=== PATIENT | male | born 1990 | race Caucasian/White ===

== ENCOUNTER 2023-08-27 07:52 | Outpatient (CLI) | payer MEDICARE, MEDICAID, SELFPAY | END 2023-08-27 07:53 | disposition home or self-care (01) | LOC: WOUND 07:55 | PROVIDERS: Visit Provider Nurse Practitioner Family | DX: L89.153 Pressure ulcer of sacral region, stage 3 (principal); G80.0 Spastic quadriplegic cerebral palsy; Z99.3 Dependence on wheelchair | CPT/HCPCS: 97597; 99203 ==

== ENCOUNTER 2023-09-04 09:30 | Outpatient (CLI) | payer MEDICARE, MEDICAID, SELFPAY | END 2023-09-04 09:31 | disposition home or self-care (01) | PROVIDERS: Visit Provider Nurse Practitioner Family | DX: L89.153 Pressure ulcer of sacral region, stage 3 (principal); G80.8 Other cerebral palsy; Z99.3 Dependence on wheelchair | CPT/HCPCS: 11042 ==

== ENCOUNTER 2023-09-18 10:40 | Outpatient (CLI) | payer MEDICARE, MEDICAID, SELFPAY | END 2023-09-18 10:41 | disposition home or self-care (01) | LOC: WOUND 10:42 | PROVIDERS: Visit Provider Family Medicine | DX: L89.153 Pressure ulcer of sacral region, stage 3 (principal); G82.50 Quadriplegia, unspecified; Z99.3 Dependence on wheelchair | CPT/HCPCS: 11042 ==

== ENCOUNTER 2023-10-02 10:45 | Outpatient (CLI) | payer MEDICARE, MEDICAID, SELFPAY ==
[2023-10-02 12:57] LABS: Basophils Absolute Auto 0.02 K/uL (0.00-0.30); Basophils Percent Auto 0.2 % (0.0-3.0); Eosinophils Absolute Auto 0.03 K/uL (0.00-0.50); Eosinophils Percent Auto 0.3 % (0.0-7.0); Hematocrit 43.7 % (37.0-53.0); Hemoglobin* 14.2 gm/dL (13.5-17.5); Immature Granulocytes Abs Auto 0.02 K/uL (0.00-0.30); Immature Granulocytes Pct Auto 0.2 %; Lymphocytes Percent Auto 12.7 % (20-44); Mean Corpuscular HGB Conc 33 gm/dL (32-36); Mean Corpuscular Hemoglobin 28 pg (26-34); Mean Corpuscular Volume 85 fL (80-100); Monocytes Percent Auto 10.6 % (0.0-11.0); Platelet Count* 259 K/uL (140-440); RDW Coefficient of Variation % 12.8 % (11.5-15.5); Red Blood Count 5.13 m/uL (4.30-5.90); White Blood Count* 10.78 K/uL (4.50-11.00)
[2023-10-02 13:01] LABS: Slide Review Reflex No
[2023-10-02 13:11] LABS: Chloride* 103 mmol/L (96-114)
[2023-10-02 13:12] LABS: Potassium* 4.1 mmol/L (3.6-5.1); Sodium* 140 mmol/L (135-149)
[2023-10-02 13:14] LABS: Creatinine* 0.5 mg/dL (0.5-1.5); Estimated Glomerular Filt Rate 138 ml/min
[2023-10-02 13:15] LABS: Anion Gap 10 mEq/L (7-15); Blood Urea Nitrogen* 16 mg/dL (5-24); Carbon Dioxide* 27 mmol/L (20-32); Glucose* 123 mg/dL (60-115)
[2023-10-02 13:16] LABS: Calcium* 9.2 mg/dL (8.4-10.6)
[2023-10-02 13:37] LABS: C Reactive Protein* 20.3 mg/dL (0.5-1.0)
[2023-10-02 13:44] LABS: Erythrocyte SedimentationRate* 38 mm/hr (2-15)
== END 2023-10-02 10:46 | disposition home or self-care (01) ==
LOC: WOUND 10:45
PROVIDERS: Visit Provider Nurse Practitioner Family
DX: L89.154 Pressure ulcer of sacral region, stage 4 (principal); G80.9 Cerebral palsy, unspecified; Z99.3 Dependence on wheelchair
CPT/HCPCS: 11044; 36415; 80048; 85025; 85651; 86140; 87070; 87186; 88307; 99212

== ENCOUNTER 2023-10-02 12:48 | Outpatient (CLI) | payer MEDICARE, MEDICAID, SELFPAY ==
--- NOTE | 2023-10-02 12:45 | CRLHL7_ITS ---
For Patients: As a result of the Cures Act, medical imaging exams and procedure reports are released immediately into your electronic medical record. You may view this report before your referring provider. If you have questions, please contact your health care provider. Indication: Pressure ulcer of the sacral region. Technique: Sacrum and coccyx lateral 1 views. Comparison: None. Findings/Impression: Hardware fusion of the lumbosacral spine. No hardware complication evident on this single image. No suspicious bone lesion to suggest osteomyelitis. No sign of fracture. No focal abnormality in the visualized soft tissues. Dictated by Jean-Pierre Sauer MD @ 10/03/2023 4:02:18 PM (Electronically Signed)
== END 2023-10-02 12:49 | disposition home or self-care (01) ==
LOC: RAD 12:50
PROVIDERS: Visit Provider Nurse Practitioner Family
DX: L89.159 Pressure ulcer of sacral region, unspecified stage (principal)
CPT/HCPCS: 11044; 36415; 72220; 80048; 85025; 85651; 86140; 87070; 87186; 88307; 99212

== ENCOUNTER 2023-10-16 10:50 | Outpatient (CLI) | payer MEDICARE, MEDICAID, SELFPAY | END 2023-10-16 10:51 | disposition home or self-care (01) | LOC: WOUND 10:50 | PROVIDERS: Visit Provider Nurse Practitioner Family | DX: L89.154 Pressure ulcer of sacral region, stage 4 (principal); G82.50 Quadriplegia, unspecified; Z99.3 Dependence on wheelchair | CPT/HCPCS: 11044; 88304; 88311; 99212 ==

== ENCOUNTER 2023-10-17 11:02 | Outpatient (CLI) | payer MEDICARE, MEDICAID, SELFPAY ==
--- NOTE | 2023-10-17 11:00 | CRLHL7_ITS ---
For Patients: As a result of the Century Cures Act, medical imaging exams and procedure reports are released immediately into your electronic medical record. You may view this report before your referring provider. If you have questions, please contact your health care provider. Indication: SCARL PRESSURE ,ULCER WORSENING,TAIL BONE EXPOSES Technique: PELVIS WITH ISOVUE 370 55CC CONTRAST USED Please note that all CT scans at this facility use dose modulation, iterative reconstruction, and/or weight-based dosing when appropriate to reduce radiation dose to as low as reasonably achievable. Comparison: X-rays 10/02/2023 Findings: Pressure ulcers presents within the posterior lower pelvic soft tissues of the midline adjacent to the sacrum with soft tissue swelling and subcutaneous gas corresponding to the clinical findings. The sacral bony structures appear intact without acute cortical destruction or periostitis. No acute fracture. Dysplasia of the right hip joint. Postop changes lumbar spine extending to the iliac bones. Scoliosis. Kramer catheter in the bladder. Constipation. No drainable abscess. No adenopathy. Impression: Pressure ulcer with subcutaneous edema and soft tissue gas without evidence of osteomyelitis involving the adjacent sacrum. Please note that all CT scans at this facility use dose modulation, iterative reconstruction, and/or weight-based dosing when appropriate to reduce radiation dose to as low as reasonably achievable. Dictated by Joseluis Bolton MD @ 10/17/2023 1:15:17 PM (Electronically Signed)
== END 2023-10-17 11:03 | disposition home or self-care (01) ==
PROVIDERS: Visit Provider Nurse Practitioner Family
DX: L89.159 Pressure ulcer of sacral region, unspecified stage (principal)
CPT/HCPCS: 72193; Q9967

== ENCOUNTER 2023-11-06 11:01 | Outpatient (CLI) | payer MEDICARE, MEDICAID, SELFPAY | END 2023-11-06 11:02 | disposition home or self-care (01) | LOC: WOUND 11:02 | PROVIDERS: Visit Provider Physician Assistant | DX: L89.154 Pressure ulcer of sacral region, stage 4 (principal); G82.50 Quadriplegia, unspecified; Z99.3 Dependence on wheelchair | CPT/HCPCS: 97597 ==

== ENCOUNTER 2023-11-20 10:24 | Outpatient (CLI) | payer MEDICARE, MEDICAID, SELFPAY | END 2023-11-20 10:25 | disposition home or self-care (01) | LOC: WOUND 10:24 | PROVIDERS: Visit Provider Nurse Practitioner Family | DX: L89.154 Pressure ulcer of sacral region, stage 4 (principal); G80.9 Cerebral palsy, unspecified; Z99.3 Dependence on wheelchair | CPT/HCPCS: 11042 ==

== ENCOUNTER 2023-12-04 10:58 | Outpatient (CLI) | payer MEDICARE, MEDICAID, SELFPAY | END 2023-12-04 10:59 | disposition home or self-care (01) | LOC: WOUND 10:58 | PROVIDERS: Visit Provider Physician Assistant | DX: L89.154 Pressure ulcer of sacral region, stage 4 (principal); G82.50 Quadriplegia, unspecified; Z99.3 Dependence on wheelchair | CPT/HCPCS: 97597; G0463 ==

== ENCOUNTER 2023-12-12 10:46 | Outpatient (CLI) | payer MEDICARE, MEDICAID, SELFPAY ==
--- NOTE | 2023-12-12 11:00 | CRLHL7_ITS ---
For Patients: As a result of the Century Cures Act, medical imaging exams and procedure reports are released immediately into your electronic medical record. You may view this report before your referring provider. If you have questions, please contact your health care provider. HISTORY: Nonhealing wound. TECHNIQUE: Intravenous contrast enhanced CT of the pelvis. 55 mL of Isovue-370 intravenous contrast was administered. COMPARISON: 10/17/2023. FINDINGS: There is a sacral decubitus ulcer with infiltration of the posterior soft tissues compatible with cellulitis. This is present adjacent to the lower sacrum. To the left of the midline in the left inferior gluteal region, there is an approximately 1.8 x 1.3 x 2.2 cm suspected subcutaneous fluid collection suspicious for abscess. This is noted on axial image 72 of series 2. Its deep aspect abuts the inferomedial left gluteus tanisha muscle. On the sagittal images, note is made of some attenuation of the inferior sacrum at the S5 level and 1st coccygeal segment. This is noted on sagittal #42 of series 4 for example and likely reflects sequelae of osteomyelitis. On the prior CT, there was corresponding bony attenuation and likely a fracture of the sacrococcygeal junction. That finding has undergone interval healing. No definite new bone destruction. Mid to upper aspect the sacrum is intact. Patient has undergone prior extensive spinal instrumentation. Suprapubic urinary bladder catheter. Moderate stool within the colon. IMPRESSION: 1. Sacral region decubitus ulcer with underlying soft tissue infiltration compatible with cellulitis. 2. To the left of the midline in the left inferior gluteal region is a small fluid collection which may reflect a subcutaneous abscess. 3. 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 No progressive bone destruction. Note that MRI is most optimal for evaluation of marrow for osteomyelitis. Dictated by Matias Cam MD @ 12/12/2023 12:00:41 PM Please note that all CT scans at this facility use dose modulation, iterative reconstruction, and/or weight-based dosing when appropriate to reduce radiation dose to as low as reasonably achievable. Dictated by: Matias Cam MD @ 12/12/2023 12:00:46 (Electronically Signed)
== END 2023-12-12 10:47 | disposition home or self-care (01) ==
LOC: CT 10:47
PROVIDERS: Visit Provider Physician Assistant
DX: L89.154 Pressure ulcer of sacral region, stage 4 (principal)
CPT/HCPCS: 72193; Q9967

== ENCOUNTER 2023-12-18 10:53 | Outpatient (CLI) | payer MEDICARE, MEDICAID, SELFPAY | END 2023-12-18 10:54 | disposition home or self-care (01) | LOC: WOUND 10:54 | PROVIDERS: Visit Provider Physician Assistant | DX: L89.154 Pressure ulcer of sacral region, stage 4 (principal); L02.31 Cutaneous abscess of buttock; G82.50 Quadriplegia, unspecified; Z99.3 Dependence on wheelchair | CPT/HCPCS: 10140; 97597 ==

== ENCOUNTER 2023-12-25 12:50 | Outpatient (CLI) | payer MEDICARE, MEDICAID, SELFPAY | END 2023-12-25 12:51 | disposition home or self-care (01) | LOC: WOUND 12:50 | PROVIDERS: Visit Provider Nurse Practitioner Family | DX: L89.154 Pressure ulcer of sacral region, stage 4 (principal); G82.50 Quadriplegia, unspecified; Z99.3 Dependence on wheelchair | CPT/HCPCS: 11043 ==

== ENCOUNTER 2024-01-01 11:01 | Outpatient (CLI) | payer MEDICARE, MEDICAID, SELFPAY | END 2024-01-01 11:02 | disposition home or self-care (01) | PROVIDERS: Visit Provider Physician Assistant | DX: L89.154 Pressure ulcer of sacral region, stage 4 (principal); L08.9 Local infection of the skin and subcutaneous tissue, unspecified; B95.61 Methicillin susceptible Staphylococcus aureus infection as the cause of diseases classified elsewhere; B95.2 Enterococcus as the cause of diseases classified elsewhere; Z99.3 Dependence on wheelchair; G82.50 Quadriplegia, unspecified | CPT/HCPCS: 87070; 87186; 97597; G0463 ==

== ENCOUNTER 2024-01-08 10:56 | Outpatient (CLI) | payer MEDICARE, MEDICAID, SELFPAY | END 2024-01-08 10:57 | disposition home or self-care (01) | LOC: WOUND 10:56 | PROVIDERS: Visit Provider Nurse Practitioner Family | DX: L89.154 Pressure ulcer of sacral region, stage 4 (principal); G82.50 Quadriplegia, unspecified; Z99.3 Dependence on wheelchair | CPT/HCPCS: 11042 ==

== ENCOUNTER 2024-01-15 10:56 | Outpatient (CLI) | payer MEDICARE, MEDICAID, SELFPAY | END 2024-01-15 10:57 | disposition home or self-care (01) | PROVIDERS: Visit Provider Nurse Practitioner Family | DX: L89.154 Pressure ulcer of sacral region, stage 4 (principal); G82.50 Quadriplegia, unspecified; Z99.3 Dependence on wheelchair | CPT/HCPCS: 11042 ==

== ENCOUNTER 2024-01-29 10:57 | Outpatient (CLI) | payer MEDICARE, MEDICAID, SELFPAY | END 2024-01-29 10:58 | disposition home or self-care (01) | LOC: WOUND 10:59 | PROVIDERS: Visit Provider Physician Assistant | DX: L89.154 Pressure ulcer of sacral region, stage 4 (principal); G82.50 Quadriplegia, unspecified; Z99.3 Dependence on wheelchair | CPT/HCPCS: 97597 ==

== ENCOUNTER 2024-02-12 10:54 | Outpatient (CLI) | payer MEDICARE, MEDICAID, SELFPAY | END 2024-02-12 10:55 | disposition home or self-care (01) | LOC: WOUND 10:55 | PROVIDERS: Visit Provider Nurse Practitioner Family | DX: L89.154 Pressure ulcer of sacral region, stage 4 (principal); G82.50 Quadriplegia, unspecified; Z99.3 Dependence on wheelchair | CPT/HCPCS: 11042 ==

== ENCOUNTER 2024-02-26 10:39 | Outpatient (CLI) | payer MEDICARE, MEDICAID, SELFPAY | END 2024-02-26 10:40 | disposition home or self-care (01) | LOC: WOUND 10:39 | PROVIDERS: Visit Provider Nurse Practitioner Family | DX: L89.154 Pressure ulcer of sacral region, stage 4 (principal); G82.50 Quadriplegia, unspecified; Z99.3 Dependence on wheelchair | CPT/HCPCS: 11042 ==

== ENCOUNTER 2024-03-11 10:53 | Outpatient (CLI) | payer MEDICARE, MEDICAID, SELFPAY | END 2024-03-11 10:54 | disposition home or self-care (01) | LOC: WOUND 10:53 | PROVIDERS: Visit Provider Nurse Practitioner Family | DX: L89.154 Pressure ulcer of sacral region, stage 4 (principal); G82.50 Quadriplegia, unspecified; Z99.3 Dependence on wheelchair | CPT/HCPCS: 11044; 87070; 87186; 88307; 88311; G0463 ==

== ENCOUNTER 2024-03-27 12:39 | Outpatient (CLI) | payer MEDICARE, MEDICAID, SELFPAY | END 2024-03-27 12:40 | disposition home or self-care (01) | LOC: WOUND 12:40 | PROVIDERS: Visit Provider Nurse Practitioner Family | DX: L89.154 Pressure ulcer of sacral region, stage 4 (principal); G82.50 Quadriplegia, unspecified; Z99.3 Dependence on wheelchair | CPT/HCPCS: 11042 ==

== ENCOUNTER 2024-04-14 08:40 | Outpatient (CLI) | payer MEDICARE, MEDICAID, SELFPAY | END 2024-04-14 08:41 | disposition home or self-care (01) | LOC: WOUND 08:40 | PROVIDERS: Visit Provider Nurse Practitioner Family | DX: M86.68 Other chronic osteomyelitis, other site (principal); L89.154 Pressure ulcer of sacral region, stage 4; G82.50 Quadriplegia, unspecified; Z99.3 Dependence on wheelchair | CPT/HCPCS: 11042 ==

== ENCOUNTER 2024-04-22 10:53 | Outpatient (CLI) | payer MEDICARE, MEDICAID, SELFPAY | END 2024-04-22 10:54 | disposition home or self-care (01) | LOC: WOUND 10:54 | PROVIDERS: Visit Provider Nurse Practitioner Family | DX: M86.68 Other chronic osteomyelitis, other site (principal); L89.154 Pressure ulcer of sacral region, stage 4; G82.50 Quadriplegia, unspecified; Z99.3 Dependence on wheelchair | CPT/HCPCS: 11042 ==

== ENCOUNTER 2024-05-06 10:53 | Outpatient (CLI) | payer MEDICARE, MEDICAID, SELFPAY | END 2024-05-06 10:54 | disposition home or self-care (01) | LOC: WOUND 10:53 | PROVIDERS: Visit Provider Nurse Practitioner Family | DX: L89.154 Pressure ulcer of sacral region, stage 4 (principal); M86.68 Other chronic osteomyelitis, other site; G82.50 Quadriplegia, unspecified; Z99.3 Dependence on wheelchair | CPT/HCPCS: 11042 ==

== ENCOUNTER 2024-05-20 10:55 | Outpatient (CLI) | payer MEDICARE, MEDICAID, SELFPAY | END 2024-05-20 10:56 | disposition home or self-care (01) | LOC: WOUND 10:56 | PROVIDERS: Visit Provider Nurse Practitioner Family | DX: M86.68 Other chronic osteomyelitis, other site (principal); L89.154 Pressure ulcer of sacral region, stage 4; G82.50 Quadriplegia, unspecified; Z99.3 Dependence on wheelchair | CPT/HCPCS: 97597 ==

== ENCOUNTER 2024-06-03 10:52 | Outpatient (CLI) | payer MEDICARE, MEDICAID, SELFPAY | END 2024-06-03 10:53 | disposition home or self-care (01) | LOC: WOUND 10:52 | PROVIDERS: Visit Provider Nurse Practitioner Family | DX: M86.68 Other chronic osteomyelitis, other site (principal); L89.154 Pressure ulcer of sacral region, stage 4; G82.50 Quadriplegia, unspecified; Z99.3 Dependence on wheelchair | CPT/HCPCS: 11042 ==

== ENCOUNTER 2024-06-17 10:51 | Outpatient (CLI) | payer MEDICARE, MEDICAID, SELFPAY | END 2024-06-17 10:52 | disposition home or self-care (01) | LOC: WOUND 10:51 | PROVIDERS: Visit Provider Physician Assistant Surgical | DX: M86.68 Other chronic osteomyelitis, other site (principal); L89.154 Pressure ulcer of sacral region, stage 4; G82.50 Quadriplegia, unspecified; Z99.3 Dependence on wheelchair | CPT/HCPCS: 11042 ==

== ENCOUNTER 2024-07-01 11:02 | Outpatient (CLI) | payer MEDICARE, MEDICAID, SELFPAY | END 2024-07-01 11:03 | disposition home or self-care (01) | LOC: WOUND 11:03 | PROVIDERS: Visit Provider Nurse Practitioner Family | DX: L89.154 Pressure ulcer of sacral region, stage 4 (principal); M86.68 Other chronic osteomyelitis, other site; G82.50 Quadriplegia, unspecified; Z99.3 Dependence on wheelchair | CPT/HCPCS: 11042 ==

== ENCOUNTER 2024-07-24 09:58 | Outpatient (CLI) | payer MEDICARE, MEDICAID, SELFPAY | END 2024-07-24 09:59 | disposition home or self-care (01) | LOC: WOUND 09:59 | PROVIDERS: Visit Provider Nurse Practitioner Family | DX: M86.68 Other chronic osteomyelitis, other site (principal); L89.154 Pressure ulcer of sacral region, stage 4; T81.41XA Infection following a procedure, superficial incisional surgical site, initial encounter; L76.34 Postprocedural seroma of skin and subcutaneous tissue following other procedure; G82.50 Quadriplegia, unspecified; Z99.3 Dependence on wheelchair | CPT/HCPCS: 10140; 11042; 87070; G0463 ==

== ENCOUNTER 2024-08-12 10:53 | Outpatient (CLI) | payer MEDICARE, MEDICAID, SELFPAY | END 2024-08-12 10:54 | disposition home or self-care (01) | LOC: WOUND 10:54 | PROVIDERS: Visit Provider Nurse Practitioner Family | DX: M86.68 Other chronic osteomyelitis, other site (principal); L89.154 Pressure ulcer of sacral region, stage 4; G82.50 Quadriplegia, unspecified; Z99.3 Dependence on wheelchair | CPT/HCPCS: 11042 ==

== ENCOUNTER 2024-09-09 10:53 | Outpatient (CLI) | payer MEDICARE, MEDICAID, SELFPAY | END 2024-09-09 10:54 | disposition home or self-care (01) | LOC: WOUND 10:53 | PROVIDERS: Visit Provider Nurse Practitioner Family | DX: M86.68 Other chronic osteomyelitis, other site (principal); L89.154 Pressure ulcer of sacral region, stage 4; T81.41XA Infection following a procedure, superficial incisional surgical site, initial encounter; G82.50 Quadriplegia, unspecified; Z99.3 Dependence on wheelchair | CPT/HCPCS: 11042; 96372; J0696 ==

== ENCOUNTER 2024-09-23 10:53 | Outpatient (CLI) | payer MEDICARE, MEDICAID, SELFPAY | END 2024-09-23 10:54 | disposition home or self-care (01) | LOC: WOUND 10:53 | PROVIDERS: Visit Provider Nurse Practitioner Family | DX: M86.68 Other chronic osteomyelitis, other site (principal); L89.154 Pressure ulcer of sacral region, stage 4; G82.50 Quadriplegia, unspecified; Z99.3 Dependence on wheelchair | CPT/HCPCS: 11042 ==

== ENCOUNTER 2024-10-09 10:50 | Outpatient (CLI) | payer MEDICARE, MEDICAID, SELFPAY | END 2024-10-09 10:51 | disposition home or self-care (01) | LOC: WOUND 10:50 | PROVIDERS: Visit Provider Nurse Practitioner Family | DX: L89.154 Pressure ulcer of sacral region, stage 4 (principal); G82.50 Quadriplegia, unspecified; Z99.3 Dependence on wheelchair | CPT/HCPCS: 11042 ==

== ENCOUNTER 2024-10-21 10:44 | Outpatient (CLI) | payer MEDICARE, MEDICAID, SELFPAY | END 2024-10-21 10:45 | disposition home or self-care (01) | LOC: WOUND 10:44 | PROVIDERS: Visit Provider Nurse Practitioner Family | DX: L89.154 Pressure ulcer of sacral region, stage 4 (principal); G82.50 Quadriplegia, unspecified; Z99.3 Dependence on wheelchair | CPT/HCPCS: 11042 ==

== ENCOUNTER 2024-11-18 10:49 | Outpatient (CLI) | payer MEDICARE, MEDICAID, SELFPAY | END 2024-11-18 10:50 | disposition home or self-care (01) | LOC: WOUND 10:50 | PROVIDERS: Visit Provider Nurse Practitioner Family | DX: M86.68 Other chronic osteomyelitis, other site (principal); L89.154 Pressure ulcer of sacral region, stage 4; G82.50 Quadriplegia, unspecified; Z99.3 Dependence on wheelchair | CPT/HCPCS: 97597 ==

== ENCOUNTER 2024-12-02 10:56 | Outpatient (CLI) | payer MEDICARE, MEDICAID, SELFPAY | END 2024-12-02 10:57 | disposition home or self-care (01) | LOC: WOUND 10:56 | PROVIDERS: Visit Provider Nurse Practitioner Family | DX: L89.154 Pressure ulcer of sacral region, stage 4 (principal); G82.50 Quadriplegia, unspecified; Z99.3 Dependence on wheelchair | CPT/HCPCS: 97597 ==

== ENCOUNTER 2024-12-16 10:49 | Outpatient (CLI) | payer MEDICARE, MEDICAID, SELFPAY | END 2024-12-16 10:50 | disposition home or self-care (01) | LOC: WOUND 10:49 | PROVIDERS: Visit Provider Nurse Practitioner Family | DX: L89.154 Pressure ulcer of sacral region, stage 4 (principal); G82.50 Quadriplegia, unspecified; Z99.3 Dependence on wheelchair | CPT/HCPCS: 97602; G0463 ==

== ENCOUNTER 2024-12-30 10:53 | Outpatient (CLI) | payer MEDICARE, MEDICAID, SELFPAY | END 2024-12-30 10:54 | disposition home or self-care (01) | LOC: WOUND 10:54 | PROVIDERS: Visit Provider Nurse Practitioner Family | DX: L89.154 Pressure ulcer of sacral region, stage 4 (principal); G82.50 Quadriplegia, unspecified; Z99.3 Dependence on wheelchair | CPT/HCPCS: 97597 ==

== ENCOUNTER 2025-01-13 10:57 | Outpatient (CLI) | payer MEDICARE, MEDICAID, SELFPAY | END 2025-01-13 10:58 | disposition home or self-care (01) | LOC: WOUND 10:58 | PROVIDERS: Visit Provider Nurse Practitioner Family | DX: L89.154 Pressure ulcer of sacral region, stage 4 (principal); G82.50 Quadriplegia, unspecified; Z99.3 Dependence on wheelchair | CPT/HCPCS: 97597 ==

== ENCOUNTER 2025-02-10 10:47 | Outpatient (CLI) | payer MEDICARE, MEDICAID, SELFPAY | END 2025-02-10 10:48 | disposition home or self-care (01) | LOC: WOUND 10:47 | PROVIDERS: Visit Provider Nurse Practitioner Family | DX: L89.154 Pressure ulcer of sacral region, stage 4 (principal); G82.50 Quadriplegia, unspecified; Z99.3 Dependence on wheelchair | CPT/HCPCS: 11042 ==

== ENCOUNTER 2025-03-10 10:51 | Outpatient (CLI) | payer MEDICARE, MEDICAID, SELFPAY | END 2025-03-10 10:52 | disposition home or self-care (01) | LOC: WOUND 10:51 | PROVIDERS: Visit Provider Nurse Practitioner Family | DX: L89.154 Pressure ulcer of sacral region, stage 4 (principal); G82.50 Quadriplegia, unspecified; Z99.3 Dependence on wheelchair | CPT/HCPCS: 11042; 87070; 87186; G0463 ==

== ENCOUNTER 2025-04-07 10:58 | Outpatient (CLI) | payer MEDICARE, MEDICAID, SELFPAY | END 2025-04-07 10:59 | disposition home or self-care (01) | LOC: WOUND 10:58 | PROVIDERS: Visit Provider Nurse Practitioner Family | DX: L89.154 Pressure ulcer of sacral region, stage 4 (principal); M86.68 Other chronic osteomyelitis, other site; G82.50 Quadriplegia, unspecified; Z99.3 Dependence on wheelchair | CPT/HCPCS: 11042 ==

== ENCOUNTER 2025-05-05 10:46 | Outpatient (CLI) | payer MEDICARE, MEDICAID, SELFPAY | END 2025-05-05 10:47 | disposition home or self-care (01) | LOC: WOUND 10:46 | PROVIDERS: Visit Provider Physician Assistant | DX: L89.154 Pressure ulcer of sacral region, stage 4 (principal); M86.68 Other chronic osteomyelitis, other site; G82.50 Quadriplegia, unspecified; Z99.3 Dependence on wheelchair | CPT/HCPCS: C5271; C5275; Q4102 ==

== ENCOUNTER 2025-06-09 10:08 | Outpatient (CLI) | payer MEDICARE, MEDICAID, SELFPAY | END 2025-06-09 10:09 | disposition home or self-care (01) | PROVIDERS: Visit Provider Nurse Practitioner Family | DX: L89.154 Pressure ulcer of sacral region, stage 4 (principal); M86.68 Other chronic osteomyelitis, other site; G82.50 Quadriplegia, unspecified; Z99.3 Dependence on wheelchair | CPT/HCPCS: 11042 ==

== ENCOUNTER 2025-06-23 10:02 | Outpatient (CLI) | payer MEDICARE, MEDICAID, SELFPAY | END 2025-06-23 10:03 | disposition home or self-care (01) | LOC: WOUND 10:03 | PROVIDERS: Referring Provider Nurse Practitioner Family; Visit Provider Nurse Practitioner Family | DX: L89.154 Pressure ulcer of sacral region, stage 4 (principal); M86.68 Other chronic osteomyelitis, other site; G82.50 Quadriplegia, unspecified; Z99.3 Dependence on wheelchair | CPT/HCPCS: 15271; C5271; Q4102 ==

== ENCOUNTER 2025-06-30 10:13 | Outpatient (CLI) | payer MEDICARE, MEDICAID, SELFPAY | END 2025-06-30 10:14 | disposition home or self-care (01) | LOC: WOUND 10:15 | PROVIDERS: Visit Provider Nurse Practitioner Family | DX: L89.154 Pressure ulcer of sacral region, stage 4 (principal); M86.68 Other chronic osteomyelitis, other site; G82.50 Quadriplegia, unspecified; Z99.3 Dependence on wheelchair | CPT/HCPCS: G0463 ==

== ENCOUNTER 2025-07-09 10:02 | Outpatient (CLI) | payer MEDICARE, MEDICAID, SELFPAY | END 2025-07-09 10:03 | disposition home or self-care (01) | LOC: WOUND 10:02 | PROVIDERS: Visit Provider Nurse Practitioner Family | DX: L89.154 Pressure ulcer of sacral region, stage 4 (principal); M86.68 Other chronic osteomyelitis, other site; G82.50 Quadriplegia, unspecified; Z99.3 Dependence on wheelchair | CPT/HCPCS: 11042 ==

== ENCOUNTER 2025-07-14 10:14 | Outpatient (CLI) | payer MEDICARE, MEDICAID, SELFPAY | END 2025-07-14 10:15 | disposition home or self-care (01) | LOC: WOUND 10:15 | PROVIDERS: Visit Provider Nurse Practitioner Family | DX: L89.154 Pressure ulcer of sacral region, stage 4 (principal); M86.68 Other chronic osteomyelitis, other site; G82.50 Quadriplegia, unspecified; Z99.3 Dependence on wheelchair | CPT/HCPCS: 11042 ==

== ENCOUNTER 2025-07-21 09:53 | Outpatient (CLI) | payer MEDICARE, MEDICAID, SELFPAY | END 2025-07-21 09:54 | disposition home or self-care (01) | LOC: WOUND 09:54 | PROVIDERS: Visit Provider Nurse Practitioner Family | DX: L89.154 Pressure ulcer of sacral region, stage 4 (principal); M86.68 Other chronic osteomyelitis, other site; G82.50 Quadriplegia, unspecified; Z99.3 Dependence on wheelchair | CPT/HCPCS: C5271; Q4102 ==

== ENCOUNTER 2025-07-28 10:25 | Outpatient (CLI) | payer MEDICARE, MEDICAID, SELFPAY | END 2025-07-28 10:26 | disposition home or self-care (01) | LOC: WOUND 10:25 | PROVIDERS: Visit Provider Nurse Practitioner Family | DX: M86.68 Other chronic osteomyelitis, other site (principal); L89.154 Pressure ulcer of sacral region, stage 4; G82.50 Quadriplegia, unspecified; Z99.3 Dependence on wheelchair | CPT/HCPCS: 11042 ==

== ENCOUNTER 2025-08-04 09:57 | Outpatient (CLI) | payer MEDICARE, MEDICAID, SELFPAY | END 2025-08-04 09:58 | disposition home or self-care (01) | LOC: WOUND 09:58 | PROVIDERS: Visit Provider Nurse Practitioner Family | DX: L89.154 Pressure ulcer of sacral region, stage 4 (principal); M86.68 Other chronic osteomyelitis, other site; G82.50 Quadriplegia, unspecified; Z99.3 Dependence on wheelchair | CPT/HCPCS: 11042; 72170 ==

== ENCOUNTER 2025-08-04 10:47 | Outpatient (CLI) | payer MEDICARE, MEDICAID, SELFPAY ==
--- NOTE | 2025-08-04 11:00 | CRLHL7_ITS ---
For Patients: As a result of the Cures Act, medical imaging exams and procedure reports are released immediately into your electronic medical record. You may view this report before your referring provider. If you have questions, please contact your health care provider. Indication: Cellulitis Technique: AP pelvis Comparison: CT 12/12/2023 IMPRESSION: Superior elevation of the right femoral head in relation to the acetabulum with developing pseudoarthrosis. Interval resection of the left femoral head. Fusion hardware appears similar with chronic lucency about the left iliac fixation nikkie. No evidence of acute cortical destruction or periostitis. Chronic changes to the sacrococcygeal junction. Dictated by Joseluis Bolton MD @ 08/04/2025 11:22:36 AM (Electronically Signed)
== END 2025-08-04 10:48 | disposition home or self-care (01) ==
LOC: RAD 10:48
PROVIDERS: Visit Provider Nurse Practitioner Family
DX: L89.154 Pressure ulcer of sacral region, stage 4 (principal)
CPT/HCPCS: 72170

== ENCOUNTER 2025-08-11 09:57 | Outpatient (CLI) | payer MEDICARE, MEDICAID, SELFPAY | END 2025-08-11 09:58 | disposition home or self-care (01) | LOC: WOUND 09:58 | PROVIDERS: Visit Provider Nurse Practitioner Family | DX: L89.154 Pressure ulcer of sacral region, stage 4 (principal); M86.68 Other chronic osteomyelitis, other site; G80.0 Spastic quadriplegic cerebral palsy; Z99.3 Dependence on wheelchair | CPT/HCPCS: 11042; 87070; 87186; G0463 ==

== ENCOUNTER 2025-08-18 09:56 | Outpatient (CLI) | payer MEDICARE, MEDICAID, SELFPAY | END 2025-08-18 09:57 | disposition home or self-care (01) | LOC: WOUND 09:56 | PROVIDERS: Visit Provider Nurse Practitioner Family | DX: L89.154 Pressure ulcer of sacral region, stage 4 (principal); M86.68 Other chronic osteomyelitis, other site; G80.0 Spastic quadriplegic cerebral palsy; Z99.3 Dependence on wheelchair | CPT/HCPCS: 11042 ==

== ENCOUNTER 2025-09-03 09:05 | Outpatient (CLI) | payer MEDICARE, MEDICAID, SELFPAY | END 2025-09-03 09:06 | disposition home or self-care (01) | LOC: WOUND 09:05 | PROVIDERS: Visit Provider Nurse Practitioner Family | DX: L89.154 Pressure ulcer of sacral region, stage 4 (principal); M86.68 Other chronic osteomyelitis, other site; G80.0 Spastic quadriplegic cerebral palsy; Z99.3 Dependence on wheelchair | CPT/HCPCS: 11042; G0463 ==

== ENCOUNTER 2025-09-08 09:57 | Outpatient (CLI) | payer MEDICARE, MEDICAID, SELFPAY | END 2025-09-08 09:58 | disposition home or self-care (01) | LOC: WOUND 09:58 | PROVIDERS: Visit Provider Nurse Practitioner Family | DX: L89.154 Pressure ulcer of sacral region, stage 4 (principal); M86.68 Other chronic osteomyelitis, other site; G80.0 Spastic quadriplegic cerebral palsy; Z99.3 Dependence on wheelchair | CPT/HCPCS: 11042 ==

== ENCOUNTER 2025-09-15 10:01 | Outpatient (CLI) | payer MEDICARE, MEDICAID, SELFPAY | END 2025-09-15 10:02 | disposition home or self-care (01) | LOC: WOUND 10:01 | PROVIDERS: Visit Provider Nurse Practitioner Family | DX: L89.154 Pressure ulcer of sacral region, stage 4 (principal); M86.68 Other chronic osteomyelitis, other site; G80.0 Spastic quadriplegic cerebral palsy; Z99.3 Dependence on wheelchair | CPT/HCPCS: 11042 ==

== ENCOUNTER 2025-09-22 10:09 | Outpatient (CLI) | payer MEDICARE, MEDICAID, SELFPAY | END 2025-09-22 10:10 | disposition home or self-care (01) | LOC: WOUND 10:09 | PROVIDERS: Visit Provider Nurse Practitioner Family | DX: L89.154 Pressure ulcer of sacral region, stage 4 (principal); M86.68 Other chronic osteomyelitis, other site; G82.50 Quadriplegia, unspecified; Z99.3 Dependence on wheelchair | CPT/HCPCS: 11042 ==

== ENCOUNTER 2025-09-29 10:04 | Outpatient (CLI) | payer MEDICARE, MEDICAID, SELFPAY | END 2025-09-29 10:05 | disposition home or self-care (01) | LOC: WOUND 10:04 | PROVIDERS: Visit Provider Nurse Practitioner Family | DX: L89.154 Pressure ulcer of sacral region, stage 4 (principal); M86.68 Other chronic osteomyelitis, other site; G82.50 Quadriplegia, unspecified; Z99.3 Dependence on wheelchair | CPT/HCPCS: 11042 ==